=== PATIENT | male | born 1985 | race African-American/Black ===

== ENCOUNTER 2018-04-14 20:53 | Emergency (ER) | payer OTHER ==
[~2018-04-14] VITALS: Ht 165.1 cm; Wt 61.2 kg
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
[2018-04-14 21:23] VITALS: BP 103/66
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
[2018-04-14] MEDS ORDERED: IBUPROFEN600 MG ORAL (21:55)
[2018-04-14] MEDS ORDERED: PSEUDOEPHEDRINE60 MG PO (21:55)
[2018-04-14 21:59] VITALS: BP 110/64
== END 2018-04-14 21:59 | disposition home or self-care (01) ==
LOC: EMR 21:11
DX: S00.83XA Contusion of other part of head, initial encounter (principal); J01.00 Acute maxillary sinusitis, unspecified; Y04.0XXA Assault by unarmed brawl or fight, initial encounter; Y93.9 Activity, unspecified; Y92.9 Unspecified place or not applicable; Y99.9 Unspecified external cause status
CPT/HCPCS: 70486; 99284